=== PATIENT | female | born 2000 | race Caucasian/White ===

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

== ENCOUNTER 2024-07-14 12:46 | Observation (INO) ==
--- OUTSIDE RECORDS SUMMARY | 2024-07-14 12:51 | External Medical Summary | Summary of Care ---
Author Name Unknown Organization [facility] Address [address] [place] [address] Phone [phone] Care Team Providers Care Hand Shaper Name Role Phone Arlet Griffin Primary Care Provider Reason for Visit * Reason Onset Date Comments Emergency Department Follow-Up 07/11/2024 Encounter Details Date Type Department Care Team (Late st Contact Info) Description 07/11/2024 Telephone Family Practice [facility] [address] [place] [address] Arlet Griffin CRNP [address] [place] [address] Emergency Department Follow-Up Allergies Active Allergy Reactions Criticality Noted Date Comments Sulfa Antibiotics 04/01/2016 Thrush documented as of this encounter (statuses as of 07/13/2024) Medications Albuterol Sulfate HFA 108 (90 Base) MCG/ACT Inhalation Aerosol Solution Inhale by mouth 2 Puffs every 4 hours as needed for Cough, Shortness of Breath or Wheezing (and prior exercise). 5 g 5 2 Active Ibuprofen 800 MG Oral Tablet (Motrin) Take 1 Tablet by mouth every 6 hours as needed for mild Pain. 360 Tablet 01/31/2023 8:38 AM EDT 3 Active Loratadine 10 MG Oral Tablet (Claritin)Indic ations:Seasonal allergic rhinitis due to pollen Take 1 Tablet by mouth in the morning. 30 Tablet 4 Active Sertraline HCl 100 MG Oral Tablet (Zoloft)Indicat ions:Depression Take 1 Tablet by mouth in the morning. 90 Tablet 05/19/2024 1:47 PM EST 5 Active documented as of this encounter (statuses as of 07/13/2024) Active Problems Problem Noted Date Diagnosed Date Upper respiratory tract infection 08/10/2023 MONICO (generalized anxiety disorder) 06/07/2023 Insomnia 06/07/2023 Chronic abdominal pain 04/19/2023 Gastroesophageal reflux disease without esophagi tis 04/19/2023 Impaired fasting blood sugar 04/19/2023 Insulin resistance 04/19/2023 BMI 40.0-44.9, adult 03/04/2022 Chronic conjunctivitis of both eyes 12/26/2019 Dry eyes, bilateral 12/26/2019 Rhinitis, nonallergic 12/26/2019 Mild intermittent asthma with exacerbation 12/25 Acute myringitis, right ear 01/17/2018 Impacted cerumen of both ears 01/17/2018 PCOS (polycystic ovarian syndrome) 12/26/2017 Overview (12/26/2017): Elevated insulin-start metformin Cyst of right ovary 06/03/2015 Dysmenorrhea 11/07/2014 documented as of this encounter (statuses as of 07/13/2024) Resolved Problems Problem Noted Date Diagnosed Date Resolved Date Obesity, Class II, BMI 35-39 .9, isolated (see actual BMI) 01/31/2020 03/04/2022 BMI 40.0-44.9, adult 06/13/2019 020 Prediabetes 01/08/2019 06/13/2019 Overview: Per Prediabetes protocol Moderate episode of recurren t major depressive disorder 03/20/2018 05/16/2019 Patellofemoral disorder 11/07/201403/02 documented as of this encounter (statuses as of 07/13/2024) Immunizations Name Administration Dates Next Due COVID-19 mRNA, LNP-s, No Pre serve, 2-Dose Series (Click Security) 05/19/2021 COVID-19, LNP-s, No Preserve , Vinay-sucrose, Ages 12+ (Pfizer) 12/17/2021,06/09/2021 DTaP Dipth/Tet/Acell Pertussis (Infanrix), Peds 09/18/2004,08/25/2001,2000,09/19,2000 HIB PRP-T, 4 Dose, PF, IM (H iberix, ActHib) 08/25/2001,2000,2000,07/20 HPV Vaccine, 4-Valent 02/18/2012,10/15/2011,06/2011 Hepatitis A, Ped/Adol., 18 y ear and below, 2-Dose 05/29/2008,09/20/2006 Hepatitis B, 0-19 yrs 02/21/2001,2000,05/03 IPV - Polio Virus Vaccine (Inact) 2004,02/21/2001,2000,07/20 MMR - Measles/Mumps/Rubella Vaccine 09/18/2004,0 05/25/2001 Meningococcal Conjugate Vacc ine (Menactra/Menveo) 06/15/2017,08/02/2011 PPD 01/31/2020 Pneumococcal Conjugate Vacci ne, 7 Valent 08/25/2001,2000,2000,07/20 Seasonal Influenza, PF, 6 M & above, IM , (FluLaval or Fluzone) 03/20/2018 Seasonal Influenza, Quad, Na vladimir (Flumist) 02/07/2020 Seasonal Influenza, Quadriva lent, No Preserve, IM 01/21/2016 TDAP (age 10 and older)(Boostrix) 03/04/2022 TDAP, Age 7 and older, IM (Adacel) 08/02/2011 Varicella Vaccine (Chicken Pox) 11/24/2001 documented as of this encounter Social History Tobacco Use Types Packs/Day Years Used Date Smoking Tobacco: Never Smokeless Tobacco: Never Comments:no passive smoke Alcohol Use Standard Drinks/Week Comments Yes 0 (1 standard drink = 0.6 oz pur e alcohol) Rare PHQ-2 Answer Date Recorded PHQ Adult Total Score 0 04/19/2023 Hunger Vital Sign Answer Date Recorded Within the past 12 months, y ou worried that your food would run out before you got the money to buy more. Never true 04/19/20 23 Within the past 12 months, t he food you bought just didn't last and you didn't have money to get more. Never true 04/19/2023 Childcare Answer Date Recorded Do you feel overwhelmed with taking care of a child, family member or friend? No 04/19/2023 Does your family need help f inding childcare? (Household - for ages 0-17 years) Not on file 04/19/2023 Clothing Answer Date Recorded Have you been unable to get clothing when it was really needed? No 04/19/2023 Is your family able to get c lothes or diapers when needed? (Household - for ages 0-17 years) Not on file 04/19/2023 Personal Safety Answer Date Recorded Do you feel unsafe or have concerns for your saf ety? No 04/19/2023 Do you have concerns for you r family's safety? (Household - for ages 0-17 years) Not on file 04/19/2023 Utilities Answer Date Recorded Do you have trouble paying y our heating, water, or electric bill? No 04/19/2023 Is your family able to pay t he heat, water, or electric bill? (Household - for ages 0-17 years) Not on file 04/19/2023 Does your family have access to good internet? (Household - for ages 0-17 years) Not on file 04/19/2023 Employment Status Answer Date Recorded Are you unemployed or without regular income? No 04/19/2023 Does the household have a re lar source of income? (Household - for ages 0-17 years) Not on file 04/19/2023 Social Connections Answer Date Recorded How often do you feel lonely or isolated from th ose around you? Never 04/19/2023 Financial Resource Strain Answer Date R ecorded Do you have any trouble payi ng for your medications, or do you think you might in the future? No 04/19/2023 Does your family have troubl e paying for medicine? (Household - for ages 0-17 years) Not on file 04/19/2023 Transportation Needs Answer Date Record ed READ ONLY Do you have troubl e getting a ride to medical visits or work? Never True 04/19/2023 Does your family have a hard time getting a ride to doctors visits? (Household - for ages 0-17 years) Not on file 04/19/2023 Has lack of transportation k ept you from medical appointments, meetings, work, or from getting things needed for daily living? Check all that apply. (Adult - for ages 18 years and over) Not on file 04/19/2023 Do you (or your family) have trouble finding or paying for a ride (transportation)? (Household - for ages 0-17 years) Not on file 04/19/2023 Housing Stability Answer Date Recorded Do you currently live in a s helter or have no steady place to sleep at night? No 04/19/2023 READ ONLY Do you think you a re at risk of becoming homeless? No 04/19/2023 Does your family worry about paying for your home or becoming homeless? (Household - for ages 0-17 years) Not on file 1 06/20/2022 Are you homeless or worried that you might be in the future? (Adult - for ages 18 years and over) Not on file Are you (or your family) jean marie eless or worried that you might be in the future? (Household - for ages 0-17 years) Not on file Food Insecurity Answer Date Recorded Do you need food for this week? No 04/19/2023 Are you able to get enough f ood for your family? (Household - for ages 0-17 years) Not on file 04/19/2023 Does your family need food t his week? (Household - for ages 0-17 years) Not on file 04/19/2023 Do you always have enough fo od for your family? (Household - for ages 0-17 years) Not on file 04/19/2023 Comments No Sex and Gender Information Value Date Recorded Sex Assigned at Female 04/19/2023 2:58 PM EST Legal Sex Female 12:32 PM EST Gender Identity Female 04/19/2023 2:58 PM EST Sexual Orientation Straight 04/19/2023 2: 58 PM EST Occupation Industry Job Start Date Job End Date Homemaker Not on file Not on file Not on file documented as of this encounter Functional Status * Are you deaf or do you have serious difficulty hearing? Answer Date of Assessment Author No 08/06/2015 9:00 AM Cameron Lyles RN * Are you blind or do you have serious difficulty seeing, even when wearing glasses? Answer Date of Assessment Author No 08/06/2015 9:00 AM Cameron Lyles RN * Do you have serious difficulty walking or climbing stairs? (5 years old or older) Answer Date of Assessment Author No 08/06/2015 9:00 AM Cameron Lyles RN * Do you have difficulty dressing or bathing? (5 years old or older) Answer Date of Assessment Author No 08/06/2015 9:00 AM Cameron Lyles RN * Because of a physical, mental, or emotional condition, do you have difficulty doing errands alone such as visiting a doctor’s office or shopping? (15 years old or older) Answer Date of Assessment Author No 08/06/2015 9:00 AM Cameron Lyles RN documented as of this encounter Mental Status * Because of a physical, mental, or emotional condition, do you have serious difficulty concentrating, remembering, or making decisions? (5 years old or older) Answer Entry Date Author No 08/06/2015 9:00 AM Cameron Lyles RN documented in this encounter Miscellaneous Notes * Telephone Encounter - Racheal Mejia MED ASSIST - 07/13/2024 10:43 AM EDT Called and spoke to patient She was able to find the drops OTC for cheaper than the prescription. She picked those up -- she has no concerns at this time and does not want to schedule an ER follow-up -- if issues were to arise she will call and schedule. * Telephone Encounter - Jimmy Lee MD - 07/13/2024 10:39 AM EDT Patient would need to be seen. We would also need the ER notes. * Telephone Encounter - Krystyna Haddad OSA - 07/11/2024 2:03 PM EDT Patient is calling she was seen at [facility] yesterday for her ear pain and the ER had ordered her a medication that was too expensive. She is asking if Arlet could send something else in for her. I advised to make an appointment for ER follow up visit patient declined she asked a nurse call her back and tell her if she needs an appointment or not. documented in this encounter Plan of Treatment Upcoming Encounters Date Type Department Care Team (Late st Contact Info) Description 07/17/2024 9:45 AM EDT Office Visit Gynecology/Obstetics [facility] [address] [place] [phone] Michelle Hand PA-C [address] [place] [phone] 07/31/2024 1:00 PM EDT Office Visit Otolaryngology [facility] [address] [facility] [place] [address] Lora Mcdaniel PA-C [address] [place] [address] Scheduled Procedures Name Priority Associated Diagnoses Date/Ti me COLONOSCOPY FLEXIBLE PROXIMAL DIAGNOSTIC Recall Diarrhea ESOPHAGOGASTRODUODENOSCOPY ( EGD), FLEXIBLE, TRANSORAL, DIAGNOSTIC Recall Chronic abdominal pain Gastroesophageal reflux disease without esophagitis Health Maintenance Due Date Last Done Comments Pneumococcal Vaccine: Pediatrics (0 to 5 Years) and At-Risk Patients (6 to 18 Years and 19+ Years) (1 of 2 - PCV) 2019 Gonorrhea / Chlamydia Screen 05/16/2020, 11/03/2017, 06/15/2017, Additional history exists Pap Smear 2021 *SPIROMETRY ONCE FOR ASTHMA-ADULT 03/25/2022 COVID-19 Vaccine ( season) 2024 12/17/2021, 06/09/2021, 05/19/2021 Influenza Vaccine (FLU shot) (#1) 2024 02/07/2020, 03/20/2018, 03/20/2018, Additional history exists Depression Screening 04/19/2024 04/19/2023 DTap/Tdap Vaccines (9 - Td or Tdap) 03/04/2032 03/04/2022, 08/02/2011, 11/18/2010, Additional history exists Hepatitis B Vaccine Completed 02/21/2001, 02/21/2001, 2000, Additional history exists HPV (Gardasil) Vaccine Completed 2, 10/15/2011, 08/02/2011 MENINGOCOCCAL (MENACTRA/MENVEO) Completed 06/15/2017, 06/15/2017, 08/02/2011, Additional history exists Meningitis B Vaccine (Bexsero/Trumemba) Aged Out No longer eligible based on patient's age to complete this topic documented as of this encounter Medical Devices Not on filedocumented as of this encounter Care Teams Hand Shaper Relationship Specialty Start Date End Date Arlet Griffin CRNP [address] [place] [phone] PCP - General Nurse Practitioner 04/19/23 documented as of this encounter
--- OUTSIDE RECORDS SUMMARY | 2024-07-14 12:51 | External Medical Summary | Summary of Care ---
Author Name Unknown Organization [facility] Address [address] [place] [address] Phone [phone] Care Team Providers Care Water Main Inspector Name Role Phone Arlet Griffin Primary Care Provider Reason for Visit * Reason Onset Date Comments Emergency Department Follow-Up 07/11/2024 Encounter Details Date Type Department Care Team (Late st Contact Info) Description 07/11/2024 Telephone Family Practice [facility] [address] [facility] [place] [address] Arlet Griffin CRNP [address] [place] [address] Emergency Department Follow-Up Allergies Active [...] mRNA, LNP-s, No Pre serve, 2-Dose Series (inMotionNow) 05/19/2021 COVID-19, LNP-s, No Preserve , Vinay-sucrose, [...] Patient is calling she was seen at [facility] yesterday for her ear pain and the [...] 07/17/2024 9:45 AM EDT Office Visit Gynecology/Obstetics [place] [address] [place] [phone] Michelle Hand PA-C [address] [place] [phone] 07/31/2024 1:00 PM EDT Office Visit Otolaryngology [facility] [address] [facility] [place] [address] Lora Mcdaniel PA-C [address] [place] [address] Scheduled Procedures Name Priority Associated Diagnoses Date/Ti [...] filedocumented as of this encounter Care Teams Water Main Inspector Relationship Specialty Start Date End Date Arlet Griffin CRNP [address] [place] [address] PCP - General Nurse Practitioner 04/19/23 documented as of this encounter
--- NOTE | 2024-07-14 13:16 | Emergency Department Note ---
Impression & Plan Acute appendicitis, Right upper quadrant pain, Periumbilical abdominal pain ED Provider Note NAME: MARTIN DAVENPORT AGE: 24 SEX: F : 2000 ARRIVES VIA: Walk-In INFORMANT: Patient, Significant other ED PROVIDER(S): Neto Horowitz MD CHIEF COMPLAINT: Abdominal pain MEDICAL DECISION MAKING: Patient presents due to concern for abdominal pain right upper quadrant. IV was established and blood work was obtained. Pain medication deferred until ultrasound. Likely positive Mancia sign. Patient was ordered IV Zofran. Patient's blood work showed a white count of 15 with a normal H&H and platelet count. The patient's kidney function is unremarkable mild hypokalemia 3.4. Patient's LFTs unremarkable. Lipase negative. Urinalysis and test are negative. Patient did have a gallbladder ultrasound performed which was negative. Fatty liver noted. The patient still had right upper quadrant pain so CT abdomen pelvis was performed. The patient was given a Coke to drink as she stated she wanted 1. The patient also stated that she had more epigastric and associated chest pains when EKG troponin and chest x-ray were performed. Chest x-ray by my read does not show evidence of obvious pneumonia or pneumothorax. EKG is unremarkable. Troponin negative. The patient's CT was reported as possible beginnings of appendicitis. Patient was ordered Mefoxin. Patient was informed of this and reassessed no active right lower quadrant pain. I did speak with the on-call general surgeon Dr. Alberts who suggested obtaining a HIDA scan as the patient had right upper quadrant pain and to further evaluate for cholecystitis. Unable to get a HIDA scan at this time. I did reevaluate the patient and stated that she had some periumbilical pain. After further discussion with Dr. Alberts he did come to evaluate the patient and now has developed right lower quadrant pain. I did convey that the patient did have a soda during her emergency department visit and had eaten prior to arrival. Patient was admitted to the general surgery service. Discussion w/ other healthcare providers: Dr. Alberts general surgery Prior /Outside records reviewed: none Differential diagnosis: Acute cholecystitis, biliary colic, appendicitis, ovarian cyst, ovarian torsion, ectopic , TOA, PID, diverticulitis, UTI, obstruction, inflammatory bowel disease, renal colic, PUD, pancreatitis, biliary pathology, hernia, volvulus, constipation, as well as other pathologies were considered. Diagnostics, as interpreted by me: ECG: Normal sinus rhythm, rate of 68, normal intervals, normal axis no ST elevations. Cardiac monitoring: An order was placed for continuous cardiac monitoring. The monitor shows a rate of 88 with sinus rhythm. Patient was placed on pulse oximetry Medical decision rules: Wells score Imaging studies: I informally interpreted the patient's gallbladder ultrasound does not show obvious evidence of cholecystitis or gallstones with formal report to follow. HPI: Patient presents due to concern for right upper abdominal pain. The patient states that it began this morning and has been intermittent with sharp twinges. The patient states that she noticed this and thought that might be related to reflux as it starts in the right side but seems to move over to the mid upper abdomen. Patient denies any falls or trauma. No chest pain or shortness of breath no leg swelling or calf pain no history of DVT or PE no recent surgeries procedures or hospitalizations and no recent long car plane travel. Patient reports that she thought maybe was related to some reflux so got some omeprazole which she took with some food and states that her pain worsened. Patient denies any alcohol or tobacco use. The patient does still have her gallbladder. PAST MEDICAL HISTORY: See Below PAST SURGICAL HISTORY: See Below SOCIAL HISTORY: See Below HOME MEDICATIONS: See Below ALLERGIES: See Below VITALS: See Below PHYSICAL EXAMINATION: GENERAL: NAD, non-toxic. Wearing glasses. BMI 42. EYE EXAM: Normal conjunctiva. PERRL, no anisocoria and EOM's grossly intact w/o pain. OROPHARYNX: Moist mucus membranes, grossly normal dentition. NECK: Trachea midline, no stridor. Supple, no nuchal rigidity, no adenopathy, non-tender. No signs of meningismus. FROM of the neck with good chin to chest and neck extension. LUNGS: Clear to auscultation. Normal chest wall mechanics. HEART: NSR, no MRG. ABDOMEN: Abdomen soft, right upper quadrant pain, positive Mancia's, epigastric pain without left upper quadrant or lower abdominal pain., no masses, no rebound or guarding. BACK: No CVA TTP. SKIN: No rashes and no bruising. UPPER EXTREMITIES: Upper extremities are grossly normal. LOWER EXTREMITIES: Grossly normal, no edema. Negative Homans' sign bilaterally. NEURO EXAM: A&O x3, cranial nerves II-XII grossly intact, normal speech, moves all 4 extremities. Past Med/Surg History Problem List (Updated 07/14/24 @ 19:27 by Neto Horowitz MD) Periumbilical abdominal pain (Acute) Right upper quadrant pain (Acute) Acute appendicitis (Acute) Appendicitis, acute Cerumen impaction (Acute) Otitis media, right (Acute) Infertility, female Depression (Chronic) Anxiety (Chronic) Hematemesis (Acute) Lower abdominal pain (Acute) Pneumonia (Acute) Vaginal bleeding (Acute) Vomiting (Acute) Medical History PCOS (polycystic ovarian syndrome) Surgical History No significant past surgical history Social History Smoking Status: Never smoker Hx Alcohol Use: No Preferred Language: Panamanian Communication Ability: Effective Hearing Ability: Normal marital status: Single Current Living Situation Comment: Lives with her parents Feels Safe at Home: Yes Allergies Allergies Allergy/AdvReac Type Severity Reaction Status Date / Time Bactrim Allergy Severe RASH-"THRUSH- Verified 06/23/17 20:10 IMMEDIATELY WHEN STARTED" sulfamethoxazole Allergy Severe RASH-"THRUSH- Verified 08/21/20 02:53 IMMEDIATELY WHEN STARTED" trimethoprim Allergy Severe RASH-"THRUSH- Verified 06/04/18 16:27 IMMEDIATELY WHEN STARTED" Home Meds Home Medications Medication Instructions Recorded Confirmed albuterol sulfate 90 mcg/actuation 2 puff inhalation Q6H PRN 06/04/18 07/14/24 aerosol inhaler (ProAir HFA) Shortness Of Breath Or Wheezing etonogestrel 68 mg subdermal 1 device subdermal CONTINOUS 06/04/18 07/14/24 implant (Nexplanon) duloxetine 30 mg capsule,delayed 30 mg PO UD 08/21/20 07/14/24 release famotidine 20 mg tablet 20 mg PO UD 08/21/20 07/14/24 ibuprofen 800 mg tablet 800 mg PO Q6 PRN Pain 08/21/20 07/14/24 omeprazole 40 mg capsule,delayed 40 mg PO UD 08/21/20 07/14/24 release sertraline 100 mg tablet 100 mg PO DAILY 07/14/24 07/14/24 Previous Rx's Medication Instructions Recorded amoxicillin 875 mg-potassium 1 tab PO BID 6 days #12 tabs 07/10/24 clavulanate 125 mg tablet ciprofloxacin 0.3 %-dexamethasone 4 drp otic (ear) BID 7 days #7.5 mL 07/10/24 0.1 % ear drops,suspension Results & Data (ED) Vital Signs Vital Signs - 24 hr 07/14/24 12:49 07/14/24 13:16 07/14/24 15:46 Temperature 36.3 C L Temperature Source Temporal Artery Scan Pulse Rate 93 H Pulse Rate [Finger] 75 Respiratory Rate 20 18 Blood Pressure 118/75 Blood Pressure [Left Arm] 111/54 L Blood Pressure Mean 89 Blood Pressure Mean [Left Arm] 73 Pulse Oximetry 97 97 Oxygen Delivery Method Room Air Room Air Room Air Sepsis Recent Fever Within 48 Hours No Sepsis New/Unexplained Change in Mental Status N/A Sepsis Action Taken by Nursing No Action Required 07/14/24 17:00 Temperature Temperature Source Pulse Rate Pulse Rate [Finger] 71 Respiratory Rate 18 Blood Pressure Blood Pressure [Left Arm] 123/70 Blood Pressure Mean Blood Pressure Mean [Left Arm] 87 Pulse Oximetry 99 Oxygen Delivery Method Room Air Sepsis Recent Fever Within 48 Hours Sepsis New/Unexplained Change in Mental Status Sepsis Action Taken by Group Home Medications Current Medication List: was personally reviewed by me Laboratory Data Attestation: I reviewed the patient's lab results. 07/14/24 13:01 07/14/24 13:01 Lab Results 07/14/24 Range/Units 13:01 WBC 15.19 H (4.8-10.8) K/ul RBC 5.14 (4.20-5.40) M/uL Hgb 14.4 (12.0-16.0) g/dl Hct 43.8 (37.0-47.0) % MCV 85.2 (80.0-100.0) fL MCH 28.0 (25.0-34.0) pg MCHC 32.9 (32.0-36.0) g/dL RDW Std Deviation 39.1 (36.4-46.3) fL RDW Coeff of Natalia 12.5 (11.5-14.5) % Plt Count 291 (130-400) K/uL MPV 9.6 (9.4-12.4) fL Immature Gran % (Auto) 0.3 % Neut % (Auto) 79.6 % Lymph % (Auto) 12.4 % [place] % (Auto) 7.3 % Eos % (Auto) 0.1 % Baso % (Auto) 0.3 % Neut # (Auto) 12.08 H (1.40-6.50) K/uL Lymph # (Auto) 1.89 (1.20-3.40) K/uL [place] # (Auto) 1.11 H (0.11-0.59) K/uL Eos # (Auto) 0.02 (0.00-0.50) K/uL Baso # (Auto) 0.04 (0.00-0.20) K/uL Immature Gran # (Auto) 0.05 (0.01-0.20) K/uL Sodium 136 (136-145) mmol/L Potassium 3.4 L (3.5-5.1) mmol/L Chloride 105 (98-107) mmol/L Carbon Dioxide 27 (21-32) mmol/L Anion Gap 4 (3-11) BUN 13 (6-23) mg/dl Creatinine 0.66 (0.6-1.2) mg/dl Est Cr Clr Drug Dosing 179.0 ml/min eGFR 125.55 BUN/Creatinine Ratio 19.7 (10-20) Glucose 77 (70-99(Fasting)) mg/dl Calcium 9.4 (8.6-10.3) mg/dl Total Bilirubin 0.6 (0.2-1.0) mg/dl AST 15 (13-39) U/L ALT 16 (7-52) U/L Alkaline Phosphatase 112 H (34-104) U/L Troponin I High Sens 6.2 (0-14) pg/ml Total Protein 7.9 (6.0-8.3) gm/dl Albumin 4.6 (3.4-5.0) gm/dl Globulin 3.3 (2.5-4.0) gm/dl Albumin/Globulin Ratio 1.4 (0.9-2) Lipase 12 (11-82) U/L Urine Color Yellow Urine Appearance Clear (Clear) Urine pH 6.0 (4.5-7.5) Ur Specific [place] 1.024 (1.000-1.030) Urine Protein Negative (Negative) Urine Glucose (UA) Negative (Negative) Urine Ketones Negative (Negative) Urine Blood Negative (Negative) Urine Nitrite Negative (Negative) Urine Bilirubin Negative (Negative) Urine Urobilinogen Negative (Negative) Ur Leukocyte Esterase Negative (Negative) Urine Test Negative (Negative) Administered Medications Discontinued Medications Al Hydrox/Mg Hydrox/Simethicone (Aluminum/Magnesium Susp 30 Ml Udc) 30 ml PO NOW STA Stop: 07/14/24 16:57 Last Admin: 07/14/24 17:07 Dose: 30 ml Documented By: TIERNEY Famotidine (Pepcid 20mg Iv Push) 20 mg in 5 mls @ 2.5 mls/min IV NOW STA Stop: 07/14/24 16:57 Last Admin: 07/14/24 17:07 Dose: 2.5 mls/min Documented By: TIERNEY Cefoxitin Sodium (Mefoxin) 2,000 mg in 60 mls @ 100 mls/hr IV NOW STA Stop: 07/14/24 18:09 Last Admin: 07/14/24 17:49 Dose: 100 mls/hr Documented By: TIERNEY Ioversol (Optiray 320 100ml) 93 ml IV ONCE ONE Stop: 07/14/24 15:50 Last Admin: 07/14/24 15:50 Dose: 93 ml Documented By: ISSAC Ketorolac Tromethamine (Ketorolac Tromethamine 15 Mg/Ml Vial) 10 mg IV NOW ONE Stop: 07/14/24 15:35 Last Admin: 07/14/24 15:45 Dose: 10 mg Documented By: TIERNEY Ondansetron HCl (Ondansetron Inj 2 Mg/Ml 2 Ml Vial) 4 mg IV NOW STA Stop: 07/14/24 13:17 Last Admin: 07/14/24 13:24 Dose: 4 mg Documented By: KESHA Imaging Data Radiologist's Impression: Gallbladder Ultrasound 07/14/24 13:13 EXAM: US Abdomen Limited Right Upper Quadrant INDICATION: Pain TECHNIQUE: Real-time ultrasound of the right upper quadrant with image documentation. COMPARISON: No relevant prior studies available. FINDINGS: Liver: Normal size and contour. Echogenic. No mass or ductal dilation. Gallbladder: No gallstones, wall thickening or surrounding fluid. Common bile duct: No significant abnormality noted. No stones. No dilation. Pancreas: Obscured by bowel gas and not assessed. Right kidney: Obscured by gas. Increased cortical echotexture cannot be excluded. No hydronephrosis. IMPRESSION: 1. Normal sonographic appearance of the gallbladder. 2. Hepatic steatosis. 3. Limited assessment of the right kidney. Echogenic right renal cortex likely artifactual. Recommend dedicated renal ultrasound when able to exclude medical renal disease. ACT 112: N/A Electronically signed by Radha Kirby 07-14-2024 2:38 PM Abdomen/Pelvis CT 07/14/24 15:29 EXAM: CT abd pelvis IV con only CLINICAL HISTORY: RUQ pain, WBC 15. TECHNIQUE: CT of the abdomen and pelvis was performed with intravenous contrast, with the following protocol: axial images, and reconstructed coronal and sagittal images. contrast-enhanced images acquired in arterial and venous phases. Intravenous contrast was administered using automated injection techniques. One of the following dose reduction techniques was utilized for this exam: Automated exposure control, adjustment of the mA and/or kV according to patient size, and use of iterative reconstruction. COMPARISON: 06/04/2018. FINDINGS: Liver: Normal in size, shape, and density. No focal lesions, cysts, or masses were identified. Gallbladder and Biliary System: The gallbladder is normal in size and shape. No wall thickening, pericholecystic fluid, or gallstones were identified. Pancreas: Pancreatic head, body, and tail are visualized and appear normal in size and density. No pancreatic masses, cysts, or calcifications noted. Spleen: Normal in size, shape, and density. No splenic lesions or masses identified. Kidneys and Adrenal Glands: Both kidneys are normal in size, shape, and position. Cortical thickness is within normal limits. No renal calculi or hydronephrosis. Adrenal glands are unremarkable. Appendix: Mildly prominent caliber at base of the appendix, with related cecal high density structure, and surrounding minimal stranding, suggestive of early cattarrhal appendicitis, correlate clinically. No evidence of appendiceal abscess or perforation. Abdominal Aorta and Vessels: The abdominal aorta and major branches are patent without evidence of an aneurysm or significant atherosclerosis. Pelvis: Urinary Bladder: Normal in contour and wall thickness. No intraluminal lesions. 3x 2 cm small right ovarian cyst, with related small adnexal fluid. Peritoneal and Retroperitoneal Structures: No free fluid or abnormal fluid collections were identified within the abdomen or pelvis. No lymphadenopathy was noted. Bowel: The visualized bowel loops are normal in caliber and appearance. No evidence of bowel obstruction or wall thickening. Bones and Soft Tissues: Pelvic bones and soft tissues are unremarkable. No fractures or abnormal masses were identified. IMPRESSION: 1. Mildly prominent caliber at base of the appendix, with related appendicolith at its base, with surrounding minimal stranding, suggestive of early cattarrhal appendicitis, correlate clinically. 2. A 3x 2 cm small right ovarian cyst, with related small adnexal fluid. Electronically signed by Avinash Mackey 07-14-2024 5:12 PM Discharge Plan Visit Data Chief Complaint: Abdominal Pain Stated Complaint: SHARP ABDOMINAL AND CHEST PAIN ED Provider: Neto Horowitz Discharge Problem: Acute appendicitis, Right upper quadrant pain, Periumbilical abdominal pain Forms Stand Alone Forms: [employer] Prescriptions Prescriptions: No Action albuterol sulfate [ProAir HFA] 90 mcg/actuation Hfa Aerosol Inhaler 2 puff INHALATION Q6H PRN (Reason: Shortness Of Breath Or Wheezing) Rx Instructions: no fill history available Nexplanon 68 mg Implant 1 device Subdermal CONTINOUS Rx Instructions: no fill history available famotidine 20 mg tablet 20 mg PO UD Rx Instructions: 20 mg po daily. no fill history available/otc duloxetine 30 mg capsule,delayed release(DR/EC) 30 mg PO UD Rx Instructions: 30 mg po daily. no fill history available ibuprofen 800 mg tablet 800 mg PO Q6 PRN (Reason: Pain) Rx Instructions: no fill history available omeprazole 40 mg capsule,delayed release(DR/EC) 40 mg PO UD Rx Instructions: no fill history available/otc unable to verify ciprofloxacin-dexamethasone 0.3-0.1 % drops,suspension 4 drp otic (ear) BID 7 Days Qty: 7.5 0RF Rx Instructions: filled 07/11 amoxicillin-pot clavulanate 875-125 mg tablet 1 tab PO BID 6 Days Qty: 12 0RF Rx Instructions: filled 07/10 sertraline 100 mg tablet 100 mg PO DAILY Rx Instructions: filled 05/16 90 day supply Referrals Referrals: Arlet Griffin CRNP [Primary Care Provider] - Discharge Problem: Acute appendicitis Qualifiers: Acute appendicitis type: with localized peritonitis Appendicitis gangrene presence: without gangrene Appendicitis perforation presence: without perforation Appendicitis abscess presence: without abscess Qualified Code(s): K 35.30 - Acute appendicitis with localized peritonitis, without perforation or gangrene
[2024-07-14] MEDS: ONDANSETRON INJ 2 MG/ML 2 ML VIAL IV STA (13:24)
[2024-07-14 13:32] LABS: Albumin Globulin Ratio 1.4 (0.9-2); Albumin Level 4.6 gm/dl (3.4-5.0); BUN Creatinine Ratio 19.7 (10-20); Bilirubin,Total 0.6 mg/dl (0.2-1.0); Calcium 9.4 mg/dl (8.6-10.3); Globulin 3.3 gm/dl (2.5-4.0); Potassium 3.4 mmol/L (3.5-5.1); Total Protein 7.9 gm/dl (6.0-8.3)
[2024-07-14 13:33] LABS: Appearance Urine Clear (Clear); Basophils # (auto) 0.04 K/uL (0.00-0.20); Basophils % (auto) 0.3 %; Bilirubin Urine Negative (Negative); Blood Urine Negative (Negative); Color Urine Yellow; Eosinophils # (auto) 0.02 K/uL (0.00-0.50); Eosinophils % (auto) 0.1 %; Glucose Urine UA Negative (Negative); Hematocrit (blood only) 43.8 % (37.0-47.0); Hemoglobin 14.4 g/dl (12.0-16.0); Immature Granulocytes # (auto) 0.05 K/uL (0.01-0.20); Immature Granulocytes % (auto) 0.3 %; Ketones Urine Negative (Negative); Leukocyte Esterase Urine Negative (Negative); Lymphocytes # (auto) 1.89 K/uL (1.20-3.40); Lymphocytes % (auto) 12.4 %; Mean Corpuscular Hgb Conc 32.9 g/dL (32.0-36.0); Mean Corpuscular Volume 85.2 fL (80.0-100.0); Mean Platelet Volume 9.6 fL (9.4-12.4); Monocytes # (auto) 1.11 K/uL (0.11-0.59); Monocytes % (auto) 7.3 %; Neutrophils # (auto) 12.08 K/uL (1.40-6.50); Neutrophils % (auto) 79.6 %; Nitrite Urine Negative (Negative); Platelet Count 291 K/uL (130-400); Protein Urine Negative (Negative); RDW Coefficient of Variation 12.5 % (11.5-14.5); RDW Standard Deviation 39.1 fL (36.4-46.3); Red Blood Count 5.14 M/uL (4.20-5.40); Specific Gravity Urine 1.024 (1.000-1.030); Urobilinogen Urine Negative (Negative); White Blood Count 15.19 K/ul (4.8-10.8)
[2024-07-14 13:34] LABS: Pregnancy Test, Urine Negative (Negative)
--- NOTE | 2024-07-14 14:39 | Ultrasound Report ---
EXAM: US Abdomen Limited Right Upper Quadrant INDICATION: Pain TECHNIQUE: Real-time ultrasound of the right upper quadrant with image documentation. COMPARISON: No relevant prior studies available. FINDINGS: Liver: Normal size and contour. Echogenic. No mass or ductal dilation. Gallbladder: No gallstones, wall thickening or surrounding fluid. Common bile duct: No significant abnormality noted. No stones. No dilation. Pancreas: Obscured by bowel gas and not assessed. Right kidney: Obscured by gas. Increased cortical echotexture cannot be excluded. No hydronephrosis. IMPRESSION: 1. Normal sonographic appearance of the gallbladder. 2. Hepatic steatosis. 3. Limited assessment of the right kidney. Echogenic right renal cortex likely artifactual. Recommend dedicated renal ultrasound when able to exclude medical renal disease. ACT 112: N/A Electronically signed by Radha Kirby 07-14-2024 2:38 PM
[2024-07-14] MEDS: KETOROLAC TROMETHAMINE 15 MG/ML VIAL IV ONE (15:45)
[2024-07-14] MEDS: OPTIRAY 320 100ml IV ONE (15:50)
[2024-07-14] MEDS: ALUMINUM/MAGNESIUM SUSP 30 ML UDC PO STA (17:07)
[2024-07-14] MEDS: FAMOTIDINE 20MG IV PUSH 20 MG/5 ML SYR IV STA (17:07)
--- NOTE | 2024-07-14 17:13 | CT Scan Report ---
EXAM: CT abd pelvis IV con only CLINICAL HISTORY: RUQ pain, WBC 15. TECHNIQUE: CT of the abdomen and pelvis was performed with intravenous contrast, with the following protocol: axial images, and reconstructed coronal and sagittal images. contrast-enhanced images acquired in arterial and venous phases. Intravenous contrast was administered using automated injection techniques. One of the following dose reduction techniques was utilized for this exam: Automated exposure control, adjustment of the mA and/or kV according to patient size, and use of iterative reconstruction. COMPARISON: 06/04/2018. FINDINGS: Liver: Normal in size, shape, and density. No focal lesions, cysts, or masses were identified. Gallbladder and Biliary System: The gallbladder is normal in size and shape. No wall thickening, pericholecystic fluid, or gallstones were identified. Pancreas: Pancreatic head, body, and tail are visualized and appear normal in size and density. No pancreatic masses, cysts, or calcifications noted. Spleen: Normal in size, shape, and density. No splenic lesions or masses identified. Kidneys and Adrenal Glands: Both kidneys are normal in size, shape, and position. Cortical thickness is within normal limits. No renal calculi or hydronephrosis. Adrenal glands are unremarkable. Appendix: Mildly prominent caliber at base of the appendix, with related cecal high density structure, and surrounding minimal stranding, suggestive of early cattarrhal appendicitis, correlate clinically. No evidence of appendiceal abscess or perforation. Abdominal Aorta and Vessels: The abdominal aorta and major branches are patent without evidence of an aneurysm or significant atherosclerosis. Pelvis: Urinary Bladder: Normal in contour and wall thickness. No intraluminal lesions. 3x 2 cm small right ovarian cyst, with related small adnexal fluid. Peritoneal and Retroperitoneal Structures: No free fluid or abnormal fluid collections were identified within the abdomen or pelvis. No lymphadenopathy was noted. Bowel: The visualized bowel loops are normal in caliber and appearance. No evidence of bowel obstruction or wall thickening. Bones and Soft Tissues: Pelvic bones and soft tissues are unremarkable. No fractures or abnormal masses were identified. IMPRESSION: 1. Mildly prominent caliber at base of the appendix, with related appendicolith at its base, with surrounding minimal stranding, suggestive of early cattarrhal appendicitis, correlate clinically. 2. A 3x 2 cm small right ovarian cyst, with related small adnexal fluid. Electronically signed by Avinash Mackey 07-14-2024 5:12 PM
[2024-07-14] MEDS: cefOXitin 2,000 MG/60 ML BAG IV STA (17:49)
[2024-07-14 18:17] LABS: Troponin I High Sensitivity 6.2 pg/ml (0-14)
--- NOTE | 2024-07-14 18:55 | History & Physical Report ---
Date of Service July 14, 2024 Assessment & Plan (1) Appendicitis, acute: Plan: Patient has made clinical presentation for appendicitis in fact the ER physician is initially for surprise that she had findings on the CT scan but I think the area of the eventually pronounced itself she is tender in the right lower quadrant now she has an elevated white count a CT scan was reviewed therefore I recommended that we proceed with laparoscopic appendectomy possible open p ossible injury to other organs Risk and complication of the surgery were discussed with the patient and her and she would like to proceed accordingly Plan Schedule for laparoscopic appendectomy possible open OR is been called at this time 7:00 the patient did eat something at 12 noon systemic antibiotics on board All questions were answered Permit signed The patient lives approximately an hour and a half away History of Present Illness Chief Complaint: Abdominal pain Primary Care Provider: SAURABH Ramon This 24-year-old female woke up this morning about 830 with significant pain in the right upper quadrant epigastric area with some reflux symptoms she came in to be evaluated in the ER thinking of his gallbladder she had a ultrasound the gallbladder was normal she has CT scan of the abdomen no questions something in the right lower quadrant possibly early appendicitis although her symptoms were not localized in the right lower quadrant but ER physician it was in the epigastric area and right upper quadrant The patient has never had any fatty foods spicy food or anything that triggered a gallbladder infection can eat anything without any problems She did state that her family has a history of atypical appendicitis in fact around had pain in her neck and turned out to be appendicitis She was seen in the emergency room a few days ago for ear infection and she was started amoxicillin twice a day and she still taking that Her past history is unremarkable she never had any past surgical history only thing she suffers from some anxiety She is here with significant other Allergies Allergy/AdvReac Type Severity Reaction Status Date / Time Bactrim Allergy Severe RASH-"THRUSH- Verified 06/23/17 20:10 IMMEDIATELY WHEN STARTED" sulfamethoxazole Allergy Severe RASH-"THRUSH- Verified 08/21/20 02:53 IMMEDIATELY WHEN STARTED" trimethoprim Allergy Severe RASH-"THRUSH- Verified 06/04/18 16:27 IMMEDIATELY WHEN STARTED" Home Medications Medication Instructions Recorded Confirmed Type albuterol sulfate 90 mcg/actuation 2 puff inhalation Q6H PRN 06/04/18 07/14/24 History aerosol inhaler (ProAir HFA) Shortness Of Breath Or Wheezing etonogestrel 68 mg subdermal 1 device subdermal CONTINOUS 06/04/18 07/14/24 History implant (Nexplanon) duloxetine 30 mg capsule,delayed 30 mg PO UD 08/21/20 07/14/24 History release famotidine 20 mg tablet 20 mg PO UD 08/21/20 07/14/24 History ibuprofen 800 mg tablet 800 mg PO Q6 PRN Pain 08/21/20 07/14/24 History omeprazole 40 mg capsule,delayed 40 mg PO UD 08/21/20 07/14/24 History release amoxicillin 875 mg-potassium 1 tab PO BID 6 days #12 tabs 07/10/24 07/14/24 Rx clavulanate 125 mg tablet ciprofloxacin 0.3 %-dexamethasone 4 drp otic (ear) BID 7 days #7.5 mL 07/10/24 07/14/24 Rx 0.1 % ear drops,suspension sertraline 100 mg tablet 100 mg PO DAILY 07/14/24 07/14/24 History Past Med/Surg History Problem List (Updated 07/14/24 @ 18:53 by Yaya Alberts MD, FACS) Appendicitis, acute Cerumen impaction (Acute) Otitis media, right (Acute) Infertility, female Depression (Chronic) Anxiety (Chronic) Hematemesis (Acute) Lower abdominal pain (Acute) Pneumonia (Acute) Vaginal bleeding (Acute) Vomiting (Acute) Medical History PCOS (polycystic ovarian syndrome) Surgical History No significant past surgical history Social History Smoking Status: Never smoker Hx Alcohol Use: No Preferred Language: Georgian Communication Ability: Effective Hearing Ability: Normal marital status: Single Current Living Situation Comment: Lives with her parents Feels Safe at Home: Yes Review of Systems Review of Systems: Unremarkable except what mentioned recently and longstanding anxiety issues Physical Exam Physical Exam: Alert coherent here with significant other in no distress Sclera nonicteric No cervical lymphadenopathy Lungs clear bilaterally no rhonchi or rails Heart no murmurs or gallop regular rate Abdomen she has right lower quadrant rebound and tenderness (the patient states that this started recently the pain was a little bit higher when she first came in) Extremities grossly normal Results & Data Results & Data Vital Signs (Past 12 Hours) Vital Signs Temp Pulse Pulse Resp BP BP Pulse Ox 07/14/24 17:00 71 18 123/70 99 07/14/24 15:46 75 18 111/54 L 97 07/14/24 13:16 07/14/24 12:49 36.3 C L 93 H 20 118/75 97 O2 Del Method 07/14/24 17:00 Room Air 07/14/24 15:46 Room Air 07/14/24 13:16 Room Air 07/14/24 12:49 Room Air PG Care Time/CCT Total # of Minutes Spent Total Time Spent with Patient: Total time spent is greater than 50% in coordination of care (as documented) at patient's floor/unit and/or counseling patient: Coding Level of Care Code 61168 INT INP/OBS CARE 2/55MIN Diagnoses Appendicitis, acute K35.80
--- NOTE | 2024-07-14 19:05 | Anesthesiology Consultation ---
Date of Service July 14, 2024 Assessment & Plan Chart Review Chart Review: Acceptable Risk for Surgery and Patient NOT seen in Pre Admission Testing Consults Requested none ASA [id number] Proposed Anesthesia Anesthesia Type: General History Height/Weight Height: 5 ft 7 in Weight: 123.3 kg Allergies Allergy/AdvReac Type Severity Reaction Status Date / Time Bactrim Allergy Severe RASH-"THRUSH- Verified 06/23/17 20:10 IMMEDIATELY WHEN STARTED" sulfamethoxazole Allergy Severe RASH-"THRUSH- Verified 08/21/20 02:53 IMMEDIATELY WHEN STARTED" trimethoprim Allergy Severe RASH-"THRUSH- Verified 06/04/18 16:27 IMMEDIATELY WHEN STARTED" Medications Home Medications Medication Instructions Recorded Confirmed Last Taken albuterol sulfate 90 mcg/actuation 2 puff inhalation Q6H PRN 06/04/18 07/14/24 Unknown aerosol inhaler (ProAir HFA) Shortness Of Breath Or Wheezing etonogestrel 68 mg subdermal 1 device subdermal CONTINOUS 06/04/18 07/14/24 Unknown implant (Nexplanon) duloxetine 30 mg capsule,delayed 30 mg PO UD 08/21/20 07/14/24 08/20/20 release famotidine 20 mg tablet 20 mg PO UD 08/21/20 07/14/24 08/20/20 ibuprofen 800 mg tablet 800 mg PO Q6 PRN Pain 08/21/20 07/14/24 Unknown omeprazole 40 mg capsule,delayed 40 mg PO UD 08/21/20 07/14/24 08/20/20 release amoxicillin 875 mg-potassium 1 tab PO BID 6 days #12 tabs 07/10/24 07/14/24 Unknown clavulanate 125 mg tablet ciprofloxacin 0.3 %-dexamethasone 4 drp otic (ear) BID 7 days #7.5 mL 07/10/24 07/14/24 Unknown 0.1 % ear drops,suspension sertraline 100 mg tablet 100 mg PO DAILY 07/14/24 07/14/24 Unknown Past Medical History Medical History PCOS (polycystic ovarian syndrome) morbid obesity anxiety/depression Exercise / Class Metabolic Activity II 4-5 Yardwork/Stairs/Walk up hill Past Surgical History Surgical History No significant past surgical history Past Anesthesia History No Hx of Anesthesia Complications and No Family Hx of Anesthesia Complications History of PONV No Hx of PONV and No Hx of Motion Sickness Social History Smoking Status: Never smoker Hx Alcohol Use: No Physical Exam Vital Signs Last Vital Signs Temp 36.3 C L 07/14/24 12:49 Pulse 71 07/14/24 17:00 Resp 18 07/14/24 17:00 BP 123/70 07/14/24 17:00 Pulse Ox 99 07/14/24 17:00 O2 Del Method Room Air 07/14/24 17:00 Testing Laboratory Results 07/14/24 13:01 07/14/24 13:01 Urine Color Yellow 07/14/24 13:01 Urine Appearance Clear (Clear) 07/14/24 13:01 Urine pH 6.0 (4.5-7.5) 07/14/24 13:01 Ur Specific [place] 1.024 (1.000-1.030) 07/14/24 13:01 Urine Protein Negative (Negative) 07/14/24 13:01 Urine Glucose (UA) Negative (Negative) 07/14/24 13:01 Urine Ketones Negative (Negative) 07/14/24 13:01 Urine Nitrite Negative (Negative) 07/14/24 13:01 Ur Leukocyte Esterase Negative (Negative) 07/14/24 13:01 Urine Test Negative (Negative) 07/14/24 13:01 07/14/24 13:01 Urine Test Negative
[2024-07-14] MEDS ORDERED: ATROPINE SULFATE 0.1 MG/ML 10ML SYR IV PRN (19:25)
[2024-07-14] MEDS ORDERED: ePHEDrine sulfate 50 MG/ML AMP IV PRN (19:25)
[2024-07-14] MEDS ORDERED: NALOXONE HCL 0.4 MG/1 ML VIAL/CARP IV PRN (19:25)
[2024-07-14] MEDS ORDERED: fentaNYL citrate PF 100 MCG/2 ML VIAL IV PRN (19:25)
[2024-07-14] MEDS ORDERED: HYDROmorphone INJ 1 MG/ML SYRINGE IV PRN (19:25)
[2024-07-14] MEDS ORDERED: ONDANSETRON INJ 2 MG/ML 2 ML VIAL IV PRN (19:25)
[2024-07-14] MEDS ORDERED: PROMETHAZINE HCL 6.25 MG in SODIUM CHLORIDE 0.9% 50 ML IV PRN (19:25)
[2024-07-14] MEDS ORDERED: FLUMAZENIL 0.1 MG/1 ML 10 ML VIAL IV PRN (19:25)
[2024-07-14] MEDS ORDERED: fentaNYL citrate PF 100 MCG/2 ML VIAL ONE ×3 (19:37→20:31)
[2024-07-14] MEDS ORDERED: ONDANSETRON INJ 2 MG/ML 2 ML VIAL ONE (19:37)
[2024-07-14] MEDS ORDERED: ROCURONIUM BROMIDE 10 MG/ML 5 ML VIAL IV ONE (19:37)
[2024-07-14] MEDS ORDERED: PROPOFOL IV EMULSION 10 MG/ML 20 ML VIAL IV ONE (19:37)
[2024-07-14] MEDS ORDERED: DEXAMETHASONE SOD INJ 4 MG/ML VIAL ONE (19:37)
[2024-07-14] MEDS ORDERED: SUCCINYLCHOLINE CHLORIDE 20 MG/ML 10 ML VIAL IV ONE (19:37)
[2024-07-14] MEDS ORDERED: KETOROLAC 30 MG/ML VIAL ONE ×2 (19:37→20:25)
[2024-07-14] MEDS ORDERED: SUGAMMADEX SODIUM 200 MG/2 ML VIAL IV ONE (20:26)
[2024-07-14] MEDS: LIDOCAINE 1%/EPINEPHRINE 1:100,000 50 ML VIAL ONE (20:40)
[2024-07-14] MEDS ORDERED: ePHEDrine sulfate 50 MG/5 ML SYR ONE (20:58)
--- NOTE | 2024-07-14 21:20 | Post Operative Brief Note ---
Immediate Post Op Note Date of Surgery July 14, 2024 Pre & Post Diagnosis Operation Date: 07/14/24 20:30 Pre-Op Diagnosis: Acute appendicitis. Post-Op Diagnosis: Acute appendicitis. I identified the patient and participated in the time-out.: Yes Procedure Operation Date: 07/14/24 20:30 Actual Procedures p Laparoscopic Appendectomy - Yaya Alberts MD, FACS Surgeon Yaya Alberts MD, FACS Mimeograph Operator o Estimated Blood Loss 5 Findings Consistent with Post-Op Diagnosis
--- NOTE | 2024-07-14 21:49 | Anesthesiology Progress Note ---
Date of Service July 14, 2024 Anesthesia Post Procedure Vital Signs Vital Signs: Temp Pulse Pulse Pulse Resp BP BP 07/14/24 21:45 103 H 20 111/88 07/14/24 21:35 107 H 19 142/83 H 07/14/24 21:28 36.1 C L 117 H 24 130/91 07/14/24 19:00 77 18 104/61 07/14/24 17:00 71 18 123/70 07/14/24 15:46 75 18 111/54 L 07/14/24 13:16 07/14/24 12:49 36.3 C L 93 H 20 118/75 Pulse Ox O2 Del Method 07/14/24 21:45 97 Room Air 07/14/24 21:35 98 Room Air 07/14/24 21:28 95 Room Air 07/14/24 19:00 97 07/14/24 17:00 99 Room Air 07/14/24 15:46 97 Room Air 07/14/24 13:16 Room Air 07/14/24 12:49 97 Room Air Pain Intensity Abdomen: Pain Intensity: 3 Transfer of Care Handoff Completed per policy Notes Mental Status: alert / awake / arousable and participated in evaluation Patient Amnestic to Procedure: Yes Nausea / Vomiting: adequately controlled Pain: adequately controlled Airway Patency, RR, SpO2: stable & adequate BP & HR: stable & adequate Hydration State: stable & adequate Anesthetic Complications: no major complications apparent and Pt Satisfied with anesthetic care
--- NOTE | 2024-07-14 22:04 | Operative Report ---
PG Post Operative Report Pre & Post Diagnosis Operation Date: 07/14/24 20:30 Pre-Op Diagnosis: Acute appendicitis. Post-Op Diagnosis: Acute appendicitis. I identified the patient and participated in the time-out.: Yes Procedure Operation Date: 07/14/24 20:30 Actual Procedures p Laparoscopic Appendectomy - Yaya Alberts MD, FACS Patient was brought into the operating theater supine position general endotracheal anesthesia systemic antibiotics on board abdomen was prepped Betadine solution properly draped timeout was had patient identified made a small incision supraumbilically transverse to accommodate a Veress needle the Veress needle was not long enough to enter into her abdomen she had a significant amount of subcutaneous tissue therefore we enlarged the incision down to about 8 cm so we got to the abdominal wall was able to lift the fascia with Katherine clamp at this point I was able to place the Veress needle CO2 insufflated established good pneumoperitoneum at about 15 mmHg 5 mm trocar followed point of entry inspected no injury identified this point the patient was placed in Trendelenburg position and rotated to the left patient had a large omentum draping overall the intestine could barely see the right colon this point a 5 mm right upper quadrant trocar was placed with preemptive local analgesic at this point we are able to place a grasper and unable to identify the patient had a cyst on her ovary we will see the cecum we rotated the patient to the left elevated the cecum barely see the appendix this point I converted the 5 mm umbilical port to a 12 mm by placing the camera right upper quadrant trocar site and direct visualization the fascia was opened enough to accommodate the 12 mm port 1 to 5 mm was placed longterm between the symphysis pubis and umbilical area direct visualization camera used at that site the umbilical port right upper quadrant forward to working ports were able then to elevate the cecu m and identified along appendix was not 16 significantly inflamed but obviously moderate we created a window between the mesoappendix and the cecum enough to place a truong load of the LUNA freed the appendix from the cecum the appendix was divided between 10 mm clips and the appendix was taken out in toto to umbilical port this point the right lower quadrant was checked hemostasis appeared satisfactory individual trocars were taken under direct utilization unless the right upper quadrant trocar was removed fascial stitch to rule out Vicryl x 2 [id number] was used to umbilical area 0 Vicryl subcutaneous tissue the other 2 port sites with 4 Monocryl Steri-Strips applied procedure was tolerated well by the patient estimated blood loss 5 cc Addendum I spoke with her and family Lenard in recovery room Surgeon Yaya Alberts MD, FACS [employer] o Estimated Blood Loss 5 Findings Consistent with Post-Op Diagnosis Appendicitis Specimens Appendix Drains None Complications None Description of Procedure merda I attest to the content of the Intraoperative Record and any orders documented therein. Any exceptions are noted below.
[2024-07-14] MEDS ORDERED: ALBUTEROL HFA 8 GM INHALER INH PRN (22:45)
[2024-07-14] MEDS: oxyCODONE/ACETAMINOPHEN 5mg/325mg TAB PO PRN (22:55)
[2024-07-14] MEDS: LACTATED RINGER'S 1,000 ML IV SCH (23:15)
[2024-07-14] MEDS: SERTRALINE HCL 100 MG TABLET PO SCH (23:23)
[2024-07-14] MEDS: CIPRO 0.3%/DEXAMETHASONE 0.1% OTIC SUSP 7.5ML OT SCH (23:24)
[2024-07-15 05:18] VITALS: O2SAT 97
--- NOTE | 2024-07-15 06:34 | XRay Report ---
EXAM: XR chest 1V portable CLINICAL HISTORY: Chest pain. TECHNIQUE: An X-ray image of the chest is obtained in AP projection. COMPARISON: 06/23/2017. FINDINGS: Pulmonary Parenchyma: Almost complete resolution of the previously noted accentuated hilar and broncho vascular markings with basal peribronchial cuffing as well as lower lobe faint patchy opacities in today's study. Lungs are clear bilaterally. No evidence of consolidation, collapse, or focal opacities. No pulmonary nodules are identified. No evidence of pleural effusion or pleural thickening. Heart and Mediastinum: Heart size and shape are normal. No mediastinal widening or masses. No hilar or mediastinal lymphadenopathy. Bony Thorax: Bony thorax appears intact without fractures or deformities. Soft Tissues: Soft tissues overlying the chest wall are unremarkable. IMPRESSION: 1. Almost complete resolution of the previously noted accentuated hilar and broncho vascular markings with basal peribronchial cuffing as well as lower lobe faint patchy opacities suspected of pneumonitis in today's study. 2. No acute cardiopulmonary abnormalities are identified. Electronically signed by Avinash Mackey 07-15-2024 06:34 AM
[2024-07-15] MEDS: PANTOprazole 40 MG TAB PO SCH (08:01)
[2024-07-15] MEDS: FAMOTIDINE 20 MG TAB PO SCH (08:01)
[2024-07-15 08:36] VITALS: BP 120/72; PULSE 88; RESP 18; TEMP 98.2
[2024-07-15] MEDS: IBUPROFEN 800 MG TAB PO PRN (08:40)
[2024-07-15] MEDS ORDERED: DULoxetine HCL 30 MG CAP PO SCH (09:00)
--- NOTE | 2024-07-15 12:07 | Electrocardiogram Report ---
Test Reason : Blood Pressure : */* mmHG Vent. Rate : 68 BPM Atrial Rate : 68 BPM P-R Int : 148 ms QRS Dur : 76 ms QT Int : 394 ms P-R-T Axes : 60 64 28 degrees QTcB Int : 418 ms Normal sinus rhythm Normal ECG When compared with ECG of 23-Jun-2017 19:56, Vent. rate has decreased by 42 bpm Confirmed by Marcelo Goldstein ([id number]) on 07/15/2024 12:07:02 PM Referred By: REFERRED SELF Confirmed By: Marcelo Goldstein
--- NOTE | 2024-07-15 13:25 | Surgery Progress Note ---
Date of Service July 15, 2024 Assessment & Plan (1) Appendicitis, acute: Plan: expected post surgical discomfort tolerating diet , VSS afebrile steri strips over port sites Pt stable for d/c , f/u op in 1 week pt seen and examined with Dr Alberts Admission and Anticipated Discharge Date Admission Date: July 14, 2024 Subjective pt reports feeling well overall tolerating diet , pain controlled Review of Systems Respiratory: no dyspnea Cardiovascular: no chest pain Gastrointestinal: + abdominal pain; no nausea and no vomit ing Physical Exam Constitutional: cooperative and comfortable; no acute distress Respiratory: normal respiratory effort and able to speak in complete sen tences; no respiratory distress Cardiovascular: Rate/Rhythm: regular rate Gastrointestinal (Abdomen): Inspection/Auscultation: + abdominal surgical incision; abdomen not distended Psychiatric: Orientation: alert and oriented x 3 Results & Data Vital Signs (Past 12 Hours) Vital Signs Temp Pulse Resp BP Pulse Ox O2 Del Method 07/15/24 08:35 98.2 F 88 18 120/72 97 Room Air 07/15/24 05:17 97.9 F 92 H 16 114/71 97 Room Air 07/15/24 01:29 97.9 F 90 18 128/78 98 Room Air PG Care Time/CCT Total # of Minutes Spent Total Time Spent with Patient: Total time spent is greater than 50% in coordination of care (as documented) at patient's floor/unit and/or counseling patient: Coding Level of Care Code 10269 Post Operative Follow-Up Diagnoses Appendicitis, acute K35.80
--- NOTE | 2024-07-16 09:29 | Discharge Summary ---
Date of Service July 15, 2024 Admission HPI Per Admitting Provider This 24-year-old female woke up this morning about 830 with significant pain in the right upper quadrant epigastric area with some reflux symptoms she came in to be evaluated in the ER thinking of his gallbladder she had a ultrasound the gallbladder was normal she has CT scan of the abdomen no questions something in the right lower quadrant possibly early appendicitis although her symptoms were not localized in the right lower quadrant but ER physician it was in the epigastric area and right upper quadrant The patient has never had any fatty foods spicy food or anything that triggered a gallbladder infection can eat anything without any problems She did state that her family has a history of atypical appendicitis in fact around had pain in her neck and turned out to be appendicitis She was seen in the emergency room a few days ago for ear infection and she was started amoxicillin twice a day and she still taking that Her past history is unremarkable she never had any past surgical history only thing she suffers from some anxiety She is here with significant other Principal Diagnosis acute appendicitis Discharge Exam Constitutional cooperative and comfortable; no acute distress Respiratory normal respiratory effort and able to speak in complete sentences; no respiratory distress Cardiovascular Rate/Rhythm: regular rate Gastrointestinal (Abdomen) Inspection/Auscultation: + abdominal surgical incision; abdomen not distended Psychiatric Orientation: alert and oriented x 3 Discharge Data Allergies Allergy/AdvReac Type Severity Reaction Status Date / Time Bactrim Allergy Severe RASH-"THRUSH- Verified 06/23/17 20:10 IMMEDIATELY WHEN STARTED" sulfamethoxazole Allergy Severe RASH-"THRUSH- Verified 08/21/20 02:53 IMMEDIATELY WHEN STARTED" trimethoprim Allergy Severe RASH-"THRUSH- Verified 06/04/18 16:27 IMMEDIATELY WHEN STARTED" Consultations 07/14/24 17:34 ED Decision to Admit Stat 07/14/24 18:04 Consult General Surgery Routine Procedures Performed Operation Date: 07/14/24 20:30 Actual Procedures p Laparoscopic Appendectomy - Yaya Alberts MD, FACS Ordered Studies 07/14/24 13:13 US gallbladder Stat 07/14/24 15:29 CT abd pelvis IV con only Stat Hospital Course (1) Appendicitis, acute: This is a 24 yo female who presented to the [facility] ED on 07/14/24 with abdominal pain. Workup in the ED showed a WBC of [address] a/p concerning for appendicitis (see HPI for full details). Patient made NPO with IVF and booked for the OR. On 07/14/24 the patient went to the OR with Dr Alberts for a Laparoscopic Appendectomy. The patient tolerated the procedure well, see operative report for full details. Post operatively the patient's diet was advanced, pain managed on prn meds, and incisions clean/dry/intact. On POD#1 the patient was deemed stable for discharge to home. The patient was given discharge instructions, follow up recommendations, return precautions and a prescription for narcotic pain medication. Total Time Total Time Spent Total Time Spent (In Minutes): 10 Discharge Plan Discharge Items Patient Disposition: Home - Self-Care Reason For Visit: POST OP Discharge Diagnosis: laparoscopic appendectomy Activity: As commented below Lifting: No more than 10 pounds Bathing Comment: you can shower .NO soaking in pools/bath for 2 weeks Exercise/Sports: Wait until after follow-up appointment Driving/Machine Use: no driving if taking narcotic pain medication Non-emergency contact: Surgeon Call non-emergency contact if: you have any medication questions, your symptoms worsen, your temperature is above 101.5, your wound has increased redness, your wound has increased drainage and your wound pain has increased Follow-up/Referrals: Yaya Alberts MD, FACS [Surgeon] - (call office for follow up in 1 week) Arlet Griffin CRNP [Primary Care Provider] - Diet: Regular Addtl Attending Provider Instructions: You will have small white bandages on underneath that are over your incision. You may shower with these on. They will tend to fall off on their own in a 7-10 days. Pending Studies at Discharge: Yes Studies:: surgical pathology Stand-Alone Forms: [facility], Smoking Cessation Medications and DC Order Prescriptions: New oxycodone-acetaminophen 5-325 mg tablet 1 - 2 tab PO .C1a-N1r MDD Max 6 tabs per day PRN (Reason: pain) Qty: 15 0RF Continued albuterol sulfate [ProAir HFA] 90 mcg/actuation Hfa Aerosol Inhaler 2 puff INHALATION Q6H PRN (Reason: Shortness Of Breath Or Wheezing) Rx Instructions: no fill history available Nexplanon 68 mg Implant 1 device Subdermal CONTINOUS Rx Instructions: no fill history available famotidine 20 mg tablet 20 mg PO UD Rx Instructions: 20 mg po daily. no fill history available/otc duloxetine 30 mg capsule,delayed release(DR/EC) 30 mg PO UD Rx Instructions: 30 mg po daily. no fill history available ibuprofen 800 mg tablet 800 mg PO Q6 PRN (Reason: Pain) Rx Instructions: no fill history available omeprazole 40 mg capsule,delayed release(DR/EC) 40 mg PO UD Rx Instructions: no fill history available/otc unable to verify ciprofloxacin-dexamethasone 0.3-0.1 % drops,suspension 4 drp otic (ear) BID 7 Days Qty: 7.5 0RF Rx Instructions: filled 07/11 sertraline 100 mg tablet 100 mg PO DAILY Rx Instructions: filled 05/16 90 day supply Discharge Orders: Discharge Order (Routine); Ordered 07/15/24 Ordered By: Jose Rucker/Other Patient Handouts: Appendectomy Admission Data Admit Date/Time: 07/14/24 22:29 Attending Provider: Yaya Alberts Admit Provider: Yaya Alberts Primary Care Provider: Arlet Griffin Other Providers: Yaya Alberts Other Interventions: Discharge Summary Assessment (RN) Last Done: 07/15/24 13:31 Coding Level of Care Code 45053 IN/OBS DISCH 30 MIN/LESS Diagnoses Appendicitis, acute K35.80
== END 2024-07-15 13:53 | disposition home or self-care (01) ==
LOC: 3E 12:46 → ED 12:46